=== PATIENT | male | born 1945 | race Caucasian/White ===

== ENCOUNTER 2024-06-06 14:41 | Emergency (ER) | payer OTHER ==
[~2024-06-06] VITALS: Ht 167.6 cm; Wt 54.5 kg
[~2024-06-06 14:41] MED LIST: AMLO1TAB22; BENA10TA90; OMEP20.64
--- NOTE | 2024-06-06 15:08 | ED.PDOC ---
History of Present Illness HPI Comments 78 y/o M, with a Hx of HTN and tobacco use, presents with friend for c/o laceration underneath right eyebrow and multiple, scattered abrasion wounds to scalp s/p mechanical fall injury, today. Patient endorses on sustaining injuries after "missing a step" and falling forwards and hitting his head against the pavement, today, which was witnessed by friend. Patient reports no lost of consciousness then or sustaining any additional injuries, vision or speech changes, headache, or any additional associated symptoms. Chief Complaint: Fall Injury Time Seen by MD: 14:45 Primary Care Provider: DR BAUTISTA Reviewed Notes: Nurses Notes, Medications, Allergies Allergies: Coded Allergies: NO KNOWN ALLERGIES (Unverified , 05/23/12) Home Meds Reported Medications Omeprazole Magnesium ( OMEPRAZOLE MAGNESIUM) 20.6 Mgdr Cap 05/23/12 Amlodipine Besylate (Amlodipine Besylate) 5 Mg Tab 05/23/12 Benazepril Hcl (Benazepril Hcl) 10 Mg Tab 05/23/12 Information Source: Patient, Friend Mode of Arrival: Ambulatory Severity: Moderate Timing: Hours Duration: Since onset Prehospital treatment: None Past Medical History PAST MEDICAL HISTORY: HTN Surgical History: Hernia Repair Family History Family History: Unknown Social History Smoker: Cigarettes Alcohol: Denies ETOH Use Drugs: Denies Drug Use Lives In: Home Integumetry: reports: laceration (underneath right eyebrow), wounds (multiple scattered abrasion wounds to scalp) All Other Systems: Reviewed and Negative (negative unless otherwise stated above or in HPI) Physical Exam General Appearance: No Apparent Distress, Normal HEENT: Normal ENT Inspection, Pharynx Normal, TMs Normal Neck: Full Range of Motion, Non-Tender, Normal, Normal Inspection Respiratory: Chest Non-Tender, Lungs Clear, No Accessory Muscle Use, No Respiratory Distress, Normal Breath Sounds Cardiovascular: No Edema, No JVD, No Murmur, No Gallop, Normal Peripheral Pulses, Regular Rate/Rhythm Breast Exam: Deferred Gastrointestinal: No Organomegaly, Non Tender, No Pulsatile Mass, Normal Bowel Sounds, Soft Genitalia: Deferred Pelvic: Deferred Rectal: Deferred Extremities: No calf tenderness, Normal capillary refill, Normal inspection, Normal range of motion, Non-tender, No pedal edema Musculoskeletal : Apperance: Normal Neurologic: Alert, template clerk II-XII nml as Tested, No Motor Deficits, Normal Affect, Normal Mood, No Sensory Deficits Cerebellar Function: Normal Reflexes: Normal Skin: Dry, Lacerations (Multiple scattered abrasions scalp; 1.5 cm laceration underneath right eyebrow ), Normal Color, Warm, Wounds (multiple scattered abrasion wounds to scalp) Lymphatic: No Adenopathy Was a procedure done? Was a procedure done?: Yes Sedation Sedation?: No Informed consent obtained: No Laceration Repair : Location Right eyelid Length 1.5 cm Laceration Repair Prep: by Irrigation Laceration Repair Wound Comple: epidermis/dermis repair Laceration Repair: Nothing Informed consent obtained: Yes Risks, benefits, and alternati: Yes Notes Dermabond used Differential Dx Considerations may include: closed head injury, laceration, abrasions, fractures, contusions, bruising, intracranial bleeding X-Ray, Labs, Meds, VS Vital Signs Date Time Temp Pulse Resp B/P (MAP) Pulse Ox O2 Delivery O2 Flow Rate FiO2 06/06/24 16:47 98.9 06/06/24 16:46 98.7 06/06/24 16:32 98.0 84 16 102/59 (73) 96 98.0 06/06/24 16:00 Room Air* 0 21 06/06/24 14:56 96.5 90 18 104/68 (80) 93 Lab Test 06/06/24 16:58 Range/Units Sodium Level Pending Potassium Level Pending Chloride Level Pending Carbon Dioxide Level Pending Anion Gap Pending Blood Urea Nitrogen Pending Creatinine Pending Glomerular Filtration Rate Calc Pending BUN/Creatinine Ratio Pending Serum Glucose Pending Calcium Level Pending Total Bilirubin Pending Aspartate Amino Transferase (AST) Pending Alanine Aminotransferase (ALT) Pending Alkaline Phosphatase Pending Total Protein Pending Albumin Pending Plasma/Serum Blood Alcohol Pending Current Medications Medications (Trade) Dose Ordered Sig/Cony Route Start Time Stop Time Status Last Admin Ibuprofen (Motrin Tablet) 800 mg ONCE ONCE PO 06/06/24 16:30 06/06/24 16:32 DC 06/06/24 16:46 Acetaminophen (Tylenol Tablet) 1,000 mg ONCE ONCE PO 06/06/24 16:30 06/06/24 16:32 DC 06/06/24 16:47 Time of 1ST Reevaluation: 15:15 Reevaluation 1ST: Unchanged Patient Education/Counseling: Diagnosis, Treatment Family Education/Counseling: No Family Present Departure 1 Departure Time of Disposition: 17:23 Impression: Primary Impression: Eyelid laceration, right Additional Impression: Fall Disposition: 01 HOME / SELF CARE / HOMELESS Condition: Stable Additional Instructions: Thank you for visiting our Emergency Room. I wish you full and complete recovery. Please follow the following instructions: 1. Take your medication bottles with you to EVERY DOCTOR'S VISIT (including your primary doctor). 2. Please follow up with your primary doctor in 2-3 days or sooner if symptoms do not improve. 3. Please read all the papers given to you at the time of the discharge so that you understand your condition better. 4. Please note that the emergency room visits are focused and not necessarily comprehensive. Therefore, it is possible that some occult medical conditions may go undiagnosed in the ER. 5. The emergency room visits are not and should not be thought of as replacement for regular visits with your primary doctor. 6. Therefore, it is absolutely critical that you follows up with your primary doctor on regular basis to make sure you receives a complete and comprehensive care. 7. I recommended the you take the hospital discharge papers to your primary care physician and other doctors' offices with you. 8. Go to your nearest emergency room if you think your condition gets worse or you think your condition is an emergency. Discharged With: Self Critical Care Note Critical Care Time?: No Stability Stability form required: No Heart Score Heart Score: Heart Score Response (Comments) Value History N/A 0 EKG N/A 0 Age N/A 0 Risk Factors N/A 0 Troponin N/A 0 Total 0 I personally scribed for ELLEN ROGERS MD ([email or web address]) on 06/06/24 at 15:08. Electronically submitted by Travis Chase ([email or web address]). ELLEN ROGERS MD Jun 06, 2024 15:08
--- NOTE | 2024-06-06 16:44 | DVH ---
EXAM: CT HEAD WITHOUT CONTRAST HISTORY: trauma COMPARISON: None TECHNIQUE: Axial images were obtained and reformatted in coronal and sagittal planes. All CT scans at this medical facility are performed using dose modulation techniques as appropriate t o a performed exam including the following: Automated exposure control was utilized; adjustment of th e MA and/or KV according to patient size; and use of iterative reconstruction technique. CT Dose: CTDI volume is 52 mGy. Dose-length product is 864 mGy*cm FINDINGS: Supratentorial Region: No evidence for large acute territorial ischemia. No intracranial hemorrhage is noted. Confluent white matter hypoattenuating foci are noted bilaterally, which typically reflect chronic microvascular ischemic changes. Posterior Fossa: No acute abnormality. Brainstem: Unremarkable. Sellar/Suprasellar Region: Unremarkable. Ventricles, Cisterns, Sulci: Age-appropriate. Orbits: Unremarkable. Paranasal Sinuses: Unremarkable. Mastoid Air Cells: Unremarkable. Vasculature: Unremarkable. Bones/Soft Tissues: No acute abnormality. Other: None. IMPRESSION: 1. No acute intracranial process. 2. Moderate chronic microvascular ischemic changes.
[2024-06-06] MEDS: IBUPROFEN 800 MG TAB PO ONE (16:46)
[2024-06-06] MEDS: ACETAMINOPHEN 325 MG TAB PO ONE (16:47)
[2024-06-06 17:26] LABS: Albumin 4.3 g/dL (3.2-4.8); Alkaline Phosphatase 64 U/L (46-116); Anion Gap 9 (5-15); BUN/Creatinine Ratio 16.9 (10.0-20.0); Blood Alcohol 151.2 mg/dL (<10); Blood Urea Nitrogen 22 mg/dL (9-23); Calcium 9.6 mg/dL (8.7-10.4); Carbon Dioxide 24 mmol/L (20-31); Chloride 106 mmol/L (98-107); Glucose 92 mg/dL (74-106); Potassium 4.3 mmol/L (3.5-5.1); Sodium 139 mmol/L (136-145)
[2024-06-06 17:27] LABS: Bilirubin, Total 0.6 mg/dL (0.2-1.0)
[2024-06-06 17:35] LABS: Alanine Aminotransferase 50 U/L (7-40); Aspartate Aminotransferase 55 U/L (13-40)
[2024-06-06 18:32] VITALS: BP 104/55; PULSE 101; RESP 17; TEMP 98.7; O2SAT 96
== END 2024-06-06 18:33 | disposition home or self-care (01) ==
LOC: ER 14:41
DX: S01.111A Laceration without foreign body of right eyelid and periocular area, initial encounter (principal); I10 Essential (primary) hypertension; F17.210 Nicotine dependence, cigarettes, uncomplicated; Z98.890 Other specified postprocedural states; W01.0XXA Fall on same level from slipping, tripping and stumbling without subsequent striking against object, initial encounter; Y93.89 Activity, other specified; Y92.89 Other specified places as the place of occurrence of the external cause; Y99.8 Other external cause status
CPT/HCPCS: 12011; 36415; 70450; 80053; 80320